=== PATIENT | male | born 1970 | race Two or more races ===

== ENCOUNTER 2022-02-14 07:51 | Emergency (ER) | payer OTHER ==
[~2022-02-14] VITALS: Ht 180.3 cm; Wt 132.9 kg
[2022-02-14] MEDS ORDERED: AVAPRO300 MG PO (08:06)
[2022-02-14] MEDS ORDERED: CARDURA XL8 MG PO (08:07)
[2022-02-14] MEDS ORDERED: TAMBOCOR150 MG PO (08:08)
[2022-02-14] MEDS ORDERED: XARELTO20 MG PO (08:09)
[2022-02-14] MEDS ORDERED: DICY20TA PO (09:44)
[2022-02-14] MEDS ORDERED: SIMETHICONE80 MG PO (09:44)
== END 2022-02-14 09:52 | disposition home or self-care (01) ==
LOC: ER 07:51
DX: K30 Functional dyspepsia (principal); I10 Essential (primary) hypertension

== ENCOUNTER 2023-05-16 01:27 | Emergency (ER) | payer OTHER ==
[~2023-05-16] VITALS: Ht 180.3 cm; Wt 142.9 kg
[~2023-05-16 01:27] MED LIST: AVAPRO300 MG PO; CARDIZEM CD240 MG; CARDURA XL8 MG PO; CIPRO500 MG PO; DICY20TA PO; INTESTINEX680 M2 PO; LASIX20 MG; PEPCID AC20 MG PO; SIMETHICONE80 MG PO; TAMBOCOR150 MG PO; XARELTO20 MG PO
== END 2023-05-16 04:45 | disposition home or self-care (01) ==
LOC: ER 01:27
DX: S73.191A Other sprain of right hip, initial encounter (principal); Y93.79 Activity, other specified sports and athletics; Y93.89 Activity, other specified; Y92.39 Other specified sports and athletic area as the place of occurrence of the external cause

== ENCOUNTER 2023-07-16 11:02 | Emergency (ER) | payer OTHER ==
[~2023-07-16] VITALS: Ht 180.3 cm; Wt 140.6 kg
== END 2023-07-16 16:24 | disposition home or self-care (01) ==
LOC: ER 11:02
PROVIDERS: Emergency Medicine
DX: K62.5 Hemorrhage of anus and rectum (principal); K64.8 Other hemorrhoids

== ENCOUNTER 2023-12-03 06:19 | Emergency (ER) | payer OTHER ==
[~2023-12-03] VITALS: Ht 180.3 cm; Wt 142.9 kg
== END 2023-12-03 08:59 | disposition home or self-care (01) ==
LOC: ER 06:19
DX: I10 Essential (primary) hypertension (principal)